=== PATIENT | male | born 1950 | race Caucasian/White ===

== ENCOUNTER → 2021-12-04 | Outpatient (CLI) | payer MEDICARE | LOC: M RAD 12:54 | PROVIDERS: ATTEND Nurse Practitioner Family | DX: E04.1 Nontoxic single thyroid nodule (principal) ==

== ENCOUNTER → 2022-01-14 | Outpatient (CLI) | payer MEDICARE ==
[~2022-01-14] MED LIST: AMLO1TAB24 PO; BISO1TAB18 PO; BUPR-71 PO; CALC600T61 PO; CHOL25TA8 PO; CIDA500T2 PO; DIPH25CA32 PO; EZET10TA21 PO; FLON1SPR NARES; IBUP80TA PO; LEVO100T5 PO; LEVOTAB10 PO; LOSA100T45 PO; MONT10TA97 PO; OLOP2.5D3 OU; OMEG1CAP74 PO; PHEN10TA PO; PROBCAP14 PO; SPIR-10 PO; VENL150C43 PO; XLEAR NARES
== END ==
LOC: M LABSMTC 10:48
PROVIDERS: ATTEND Anesthesiology
DX: Z01.812 Encounter for preprocedural laboratory examination (principal); Z11.52 Encounter for screening for COVID-19

== ENCOUNTER → 2022-02-08 | Outpatient (CLI) | payer MEDICARE ==
[2022-02-08 14:07] LABS: BLOOD UREA NITROGEN 19 MG/DL (9-23); CREATININE FOR GFR 1.15 MG/DL (0.70-1.30); GLOMERULAR FILTRATION RATE > 60.0 (>42)
== END ==
LOC: M LAB 11:16
PROVIDERS: ATTEND Otolaryngology
DX: H90.42 Sensorineural hearing loss, unilateral, left ear, with unrestricted hearing on the contralateral side (principal)

== ENCOUNTER → 2022-02-13 | Outpatient (CLI) | payer MEDICARE ==
[~2022-02-13] MED LIST changes: +PROHANCE 279.3MG/ML 15ML VIAL As Ordered ONE; +PROHANCE 279.3MG/ML 5ML VIAL As Ordered ONE
== END ==
LOC: M RAD 10:42
PROVIDERS: ATTEND Otolaryngology
DX: H90.42 Sensorineural hearing loss, unilateral, left ear, with unrestricted hearing on the contralateral side (principal)
CPT/HCPCS: 70553; A9576

== ENCOUNTER → 2022-02-19 | Outpatient (CLI) | payer MEDICARE ==
[~2022-02-19] MED LIST changes: +AZEL1SPR3 NARES; -PROHANCE 279.3MG/ML 15ML VIAL As Ordered ONE; -PROHANCE 279.3MG/ML 5ML VIAL As Ordered ONE
== END ==
LOC: M LABSMTC 10:00
PROVIDERS: ATTEND Anesthesiology
DX: Z01.812 Encounter for preprocedural laboratory examination (principal); Z20.822 Contact with and (suspected) exposure to COVID-19

== ENCOUNTER 2022-02-22 11:03 | Day surgery (SDC) | payer MEDICARE ==
[~2022-02-22] VITALS: Ht 182.9 cm; Wt 12.2 kg
[~2022-02-22 11:03] MED LIST changes: +NS 1,000 ML IV ONE
[2022-02-22] MEDS ORDERED: propofoL 200 MG/20 ML VIAL As Ordered ONE ×2 (11:42→13:14)
[2022-02-22] MEDS ORDERED: LIDOCAINE 2% 100MG/5ML SDV (FOR ANES.) As Ordered ONE (11:42)
[2022-02-22 13:36] VITALS: BP 108/55
== END 2022-02-22 14:05 | disposition home or self-care (01) ==
LOC: M OPP 11:03
PROVIDERS: ATTEND Surgery
DX: Z12.11 Encounter for screening for malignant neoplasm of colon (principal); K64.0 First degree hemorrhoids; Z79.899 Other long term (current) drug therapy; Z99.89 Dependence on other enabling machines and devices; Z88.8 Allergy status to other drugs, medicaments and biological substances; G47.30 Sleep apnea, unspecified; I10 Essential (primary) hypertension; E78.00 Pure hypercholesterolemia, unspecified; F32.9 Major depressive disorder, single episode, unspecified; F41.9 Anxiety disorder, unspecified

== ENCOUNTER → 2022-03-20 | Outpatient (REF) | payer MEDICARE ==
[~2022-03-20] MED LIST changes: +DIPH-435 PO; -DIPH25CA32 PO; -NS 1,000 ML IV ONE
[2022-03-20 17:18] LABS: CHOLESTEROL RISK RATIO 4.64 (<5); HDL CHOLESTEROL 42.8 MG/DL (>40); LDL CHOLESTEROL 136.2 MG/DL (<100)
[2022-03-20 17:23] LABS: FREE T4 1.33 NG/DL (0.89-1.76); THYROID STIMULATING HORMONE 1.331 uIU/ML (0.55-4.78)
[2022-03-20 17:34] LABS: HEMOGLOBIN A1c 5.7 % (4.0-6.0)
== END ==
LOC: M LAB REF 16:17
PROVIDERS: ATTEND Nurse Practitioner Family
DX: R73.03 Prediabetes (principal); E03.9 Hypothyroidism, unspecified; E78.5 Hyperlipidemia, unspecified

== ENCOUNTER → 2023-01-27 | Outpatient (REF) | payer MEDICARE ==
[~2023-01-27] MED LIST changes: +FISH OIL 1,3601 EACH PO; -LOSA100T45 PO; +LOSA100T46 PO; -OMEG1CAP74 PO
[2023-01-27 19:15] LABS: HEMOGLOBIN A1c 5.8 % (4.0-6.0)
[2023-01-27 19:25] LABS: ALBUMIN 3.8 G/DL (3.2-5.2); ALKALINE PHOSPHATASE 73 U/L (46-116); ALT/SGPT 28 U/L (7.0-40); AST/SGOT 25 U/L (<34); BILIRUBIN,TOTAL 0.5 MG/DL (0.3-1.2); BLOOD UREA NITROGEN 21 MG/DL (9-23); CALCIUM LEVEL 8.9 MG/DL (8.3-10.6); CARBON DIOXIDE LEVEL 30 MMOL/L (20-31); CHLORIDE LEVEL 101 MMOL/L (98-107); CHOLESTEROL LEVEL 213 MG/DL (<200); CHOLESTEROL RISK RATIO 4.26 (<5); CREATININE FOR GFR 1.01 MG/DL (0.70-1.30); GLOMERULAR FILTRATION RATE > 60.0 (>42); GLUCOSE, FASTING 103 MG/DL (74-106); HDL CHOLESTEROL 49.9 MG/DL (>40); LDL CHOLESTEROL 138.1 MG/DL (<100); NON-HDL-C 163.1 MG/DL; POTASSIUM SERUM 4.2 MMOL/L (3.5-5.1); SODIUM LEVEL 138 MMOL/L (136-145); THYROID STIMULATING HORMONE 1.591 uIU/ML (0.55-4.78); TOTAL PROTEIN 6.7 G/DL (5.7-8.2); TRIGLYCERIDES LEVEL 125 MG/DL (<150)
== END ==
LOC: M LAB REF 18:26
PROVIDERS: ATTEND Nurse Practitioner Family
DX: I10 Essential (primary) hypertension (principal); E78.5 Hyperlipidemia, unspecified; E03.9 Hypothyroidism, unspecified; R73.03 Prediabetes; E55.9 Vitamin D deficiency, unspecified

== ENCOUNTER → 2023-04-03 | Outpatient (CLI) | payer MEDICARE | LOC: M WUC 11:54 | PROVIDERS: ATTEND Nurse Practitioner Family | DX: M18.9 Osteoarthritis of first carpometacarpal joint, unspecified (principal) ==

== ENCOUNTER → 2023-05-22 | Outpatient (CLI) | payer MEDICARE | LOC: M SLEEP 20:00 | PROVIDERS: ATTEND Nurse Practitioner Adult Health | DX: G47.33 Obstructive sleep apnea (adult) (pediatric) (principal) ==

== ENCOUNTER → 2023-06-20 | Outpatient (REF) | payer MEDICARE | LOC: M LAB REF 10:49 | PROVIDERS: ATTEND Nurse Practitioner Family | DX: J32.9 Chronic sinusitis, unspecified (principal) ==